=== PATIENT | male | born 1940 | race American Indian/Alaskan Native ===

== ENCOUNTER 2020-07-21 17:13 | Emergency (ER) | payer OTHER | END 2020-07-21 21:29 | disposition other institution (70) | LOC: ED 17:13 | CPT/HCPCS: 36415; 71045; 80048; 82140; 82728; 83615; 84145; 84484; 85025; 85379; 85610; 85730; 86140; 87040; 93005; 96365; 96372; 99291; J0696; J1650; J8540 ==